=== PATIENT | female | born 1965 | race Hispanic/Latino ===

== ENCOUNTER 2024-02-01 14:38 | Emergency (ER) | payer OTHER, SELFPAY ==
[2024-02-01 14:41] VITALS: BP 144/90
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
[2024-02-01 16:00] VITALS: BP 129/77
== END 2024-02-01 17:18 | disposition home or self-care (01) ==
LOC: EMR 14:38
PROVIDERS: EMERGENCY PHYSICIAN Student in an Organized Health Care Education/Training Program
DX: S09.90XA Unspecified injury of head, initial encounter (principal); V49.9XXA Car occupant (driver) (passenger) injured in unspecified traffic accident, initial encounter
CPT/HCPCS: 99284; 70450